=== PATIENT | female | born 1985 | race Caucasian/White ===

== ENCOUNTER 2017-04-14 08:55 | Day surgery (SDC) | payer OTHER ==
[~2017-04-14] VITALS: Ht 162.6 cm; Wt 84.4 kg
[~2017-04-14 08:55] MED LIST: CALCIUM + VITA1 EACH PO; FLOMAX0.4 MG PO; IBUPROFEN600 MG PO; IBUPROFEN800 MG PO; OMEPRAZOLE20 MG PO; PERCOCET 5-3251 EACH PO; PRENATAL FORMU1 EAC1 PO; PYRIDIUM200 MG PO
--- NOTE | 2017-04-14 10:32 | NUR ---
04/14/17 1032 Meredith Matthew 1021 RESP EVEN AND UNLABORED. 1030 PT O2 SAT 100%, O2 DECREASED TO 6L.
--- NOTE | 2017-04-14 10:55 | NUR ---
ICED WATER AND CRACKERS GIVEN. FAMILY @ BS. CALL LIGHT W/IN REACH.
[2017-04-14] MEDS ORDERED: NORCO 5-325 TA1 EACH PO (11:14)
--- NOTE | 2017-04-14 11:53 | NUR ---
LE 1145: PT UP TO BR W/RN STANDBY. PT AMBULATES WELL AND DENIES DIZZINESS. PT VOIDS 200 ML PINK URINE AND REQ DC HOME. VERBAL DC INSTRUCTIONS GIVEN IN PRESENCE OF SPOUSE AND PT AND HE BOTH VERBALIZE UNDERSTANDING. PT DRESSES SELF IN PRESENCE OF SPOUSE AND TRANSFERS SELF WELL TO TO DC HOME.
--- NOTE | 2017-04-21 09:16 | OR ---
[facility] [address] [place] [id number] Signed DATE OF OPERATION: 04/14/2017 SURGEON: Manjula Laguna DO PREOPERATIVE DIAGNOSES: 1. Abnormal uterine bleeding. 2. Endometrial polyp. 3. Gastroesophageal reflux disease. POSTOPERATIVE DIAGNOSES: 1. Abnormal uterine bleeding. 2. Endometrial polyp. 3. Gastroesophageal reflux disease. PROCEDURES PERFORMED: 1. Hysteroscopic polypectomy. 2. Dilation and curettage. SURGEON: Manjula Laguna DO ANESTHESIA: General. ESTIMATED BLOOD LOSS: 10 mL. SPECIMEN: Endometrial polyp and curettings together. FINDINGS: Normal external genitalia. The vagina has minimal apical descensus: Patient would be a good candidate for total laparoscopic hysterectomy in the future if required. On hysteroscopy, normal endocervical canal. There was a small posterior polyp and the endometrial cavity and normal bilateral tubal ostia. Otherwise the endometrial cavity is completely normal. Polyp was removed and curettage was performed. Hemostasis at the end of procedure. COMPLICATIONS: None. Electronically Signed By: MANJULA LAGUNA DO 04/21/17 0916 PATIENT NAME: UPTONELIE OPERATIVE REPORT DATE OF : 87 PHYSICIAN: MANJULA LAGUNA DO REPORT #: [id number] REPORT IS CONFIDENTIAL AND NOT TO BE RELEASED WITHOUT AUTHORIZATION [address] [address] Signed INDICATIONS: Ms. Upton is a pleasant 31-year-old, G6, P4, white female with a long history of abnormal uterine bleeding. She delivered her last baby in November 2016 and has continued to have irregular periods . She has not been able to tolerate hormonal or nonhormonal contraception. She had an ultrasound that was performed that demonstrated small structural defect likely an endometrial polyp. Patient was consented for hysteroscopy D and C and possible hysteroscopic polypectomy. Risks, benefits, and alternatives were discussed in detail with the patient. Patient understood and wished to proceed with the procedure. TECHNIQUE: The patient was taken to the operating room. Time-out was performed confirming correct patient, correct procedure. General anesthesia was adequately established. Patient was prepped and draped in dorsal supine position with her feet in Yellofin stirrups. ICPs run running and no preop antibiotics or heparin indicated. A weighted speculum was placed in the vagina and the anterior lip of the cervix was grasped with long Allis. The cervix was gently dilated using Hegar dilators and operative hysteroscope was placed in the cervical os and advanced under direct visualization of the uterine cavity. Normal cervical canal was noted. Inside the endometrial cavity, a small posterior polyp was noted. Normal tubal ostia and normal-appearing endometrium. The MyoSure Light device was selected and polypectomy was performed without complication. Circumferential curettage was then performed using the MyoSure Light device. The hysteroscope was slowly withdrawn and good hemostasis was appreciated. A long Allis was removed and again good hemostasis was appreciated. The patient was taken to the PACU in good and stable condition. Sponge, needle, and instrument counts were correct x2 at the end of procedure. DO DEBBI Saleh/CANDE /[id number] Electronically Signed By: MANJULA LAGUNA DO 04/21/17 0916 PATIENT NAME: ELIE UPTON OPERATIVE REPORT DATE OF : 87 PHYSICIAN: MANJULA LAGUNA DO REPORT #: [id number] REPORT IS CONFIDENTIAL AND NOT TO BE RELEASED WITHOUT AUTHORIZATION [address] [place] [address] Signed Electronically Signed By: MANJULA LAGUNA, DO 04/21/17 0916 PATIENT NAME: ELIE UPTON OPERATIVE REPORT DATE OF : 87 PHYSICIAN: MANJULA LAGUNA DO REPORT #: [id number] REPORT IS CONFIDENTIAL AND NOT TO BE RELEASED WITHOUT AUTHORIZATION
== END 2017-04-14 11:55 | disposition home or self-care (01) ==
LOC: DS 08:55 → OPS 08:55 → DS 11:15 → OPS 11:55
PROVIDERS: Obstetrics & Gynecology
PROC: 0UDB8ZX Extraction of Endometrium, Via Natural or Artificial Opening Endoscopic, Diagnostic (ICD-10-PCS; principal; 2017-04-14 11:15)
DX: N84.0 Polyp of corpus uteri (principal); K21.9 Gastro-esophageal reflux disease without esophagitis; Z98.890 Other specified postprocedural states; N93.9 Abnormal uterine and vaginal bleeding, unspecified
CPT/HCPCS: 00952; J1100; J1885; J2250; J2405; J2704; J2765; J3010; J7120